=== PATIENT | female | born 1965 | race Caucasian/White ===

== ENCOUNTER 2017-02-12 16:55 | Outpatient (CLI) | payer OTHER ==
[2017-02-12 17:45] LABS: eGFR (African) > 60; eGFR (Non-African) > 60
== END 2017-02-12 16:56 ==
LOC: LAB 16:55
PROVIDERS: ATTEND Physician Assistant
DX: T14.8 Other injury of unspecified body region (principal); W57.XXXA Bitten or stung by nonvenomous insect and other nonvenomous arthropods, initial encounter; R53.83 Other fatigue
CPT/HCPCS: 36415; 80053; 84443; 86618; 86666; 86757

== ENCOUNTER 2017-02-19 15:08 | Outpatient (CLI) | payer OTHER ==
--- NOTE | 2017-02-19 16:02 | Diagnostic Imaging Report ---
ALBERT CHAN [facility] [id number] [facility] [address] [address] Report Submission Date: Feb 19, 2017 3:58:40 PM CDT Patient Study Name: CAIT CEDEÑO Date: Feb 19, 2017 3:12:36 PM CDT Modality Type: CR Gender: F Description: CHEST : 67 Institution: [facility] Physician: ALBERT CHAN Chest 2 views History: Cough and prior smoker Findings: The lungs are mildly hyperinflated without pneumonia, pleural effusion , or pneumothorax. Heart size and pulmonary vascularity are normal. Osseous structures are unremarkable. Impression: Mild hyperinflation. Electronically signed on Feb 19, 2017 3:58:40 PM CDT by: Jim MCDONALD
== END 2017-02-19 15:10 ==
LOC: RAD 15:08
PROVIDERS: ATTEND Physician Assistant
DX: R05 Cough (principal)
CPT/HCPCS: 71020

== ENCOUNTER 2017-05-20 10:52 | Outpatient (CLI) | payer OTHER | END 2017-05-20 10:53 | LOC: LAB 10:52 | PROVIDERS: ATTEND Physician Assistant | DX: E03.9 Hypothyroidism, unspecified (principal) | CPT/HCPCS: 36415; 84443 ==

== ENCOUNTER 2017-11-22 11:15 | Outpatient (CLI) | payer OTHER | END 2017-11-22 11:16 | LOC: LAB 11:15 | PROVIDERS: ATTEND Physician Assistant | DX: E03.9 Hypothyroidism, unspecified (principal) | CPT/HCPCS: 36415; 84439; 84443; 84481 ==